=== PATIENT | male | born 1975 | race Caucasian/White ===

== ENCOUNTER 2018-04-12 17:27 | Emergency (ER) | payer OTHER ==
[~2018-04-12] VITALS: Ht 177.8 cm; Wt 79.4 kg
[2018-04-12] MEDS ORDERED: LORAZEPAM 1 MG TABLET ONE (18:28)
[2018-04-12] MEDS ORDERED: LORAZEPAM 1 MG TABLET PO ONE (18:30)
--- NOTE | 2018-04-12 18:34 | NUR ---
PT FEELING ANXIOUS, SOB AND NUMBNESS TO FINGERS & LIPS AFTER WORKING OUT. PT STS HE TOOK COFFEE & PRE WORKOUT SUPPLEMENT BEFORE WORKING OUT. PT DENIES DIZZINESS, N/V @ THIS TIME. PT SEEN & EVAL'D BY RODRÍGUEZ NP & WILL CONT TO MONITOR.
--- NOTE | 2018-04-12 18:41 | NUR ---
MEDICATED FOR ANXIETY, PT ELSIE WELL.
[2018-04-12 19:05] LABS: BASOPHILS # (AUTO) 0.1 /CMM (0.0-0.2); EOSINOPHILS % (AUTO) 3.2 % (0.0-6.0); HEMATOCRIT 44 % (39-51); HEMOGLOBIN 15.2 g/dL (13.5-17.5); LYMPHOCYTES # (AUTO) 2.9 /CMM (0.8-4.8); LYMPHOCYTES % (AUTO) 37.6 % (20.0-44.0); MEAN CORPUSCULAR HGB CONC 35 g/dl (31.0-36.0); MEAN CORPUSCULAR VOLUME 85 fL (80-96); MONOCYTES # (AUTO) 0.5 /CMM (0.1-1.30); MONOCYTES % (AUTO) 6.8 % (2.0-12.0); NEUTROPHILS # (AUTO) 4.1 /CMM (1.8-8.9); NEUTROPHILS % (AUTO) 51.4 % (43.0-81.0); PLATELET COUNT (AUTO) 220 /CMM (150-450); RDW COEFFICIENT OF VARIATION 11.6 (11.5-15.0); RED BLOOD CELL COUNT(AUTO) 5.17 MIL/uL (4.5-6.0); WHITE BLOOD COUNT (AUTO) 7.8 K/uL (4.3-11.0)
[2018-04-12 19:12] LABS: CALCIUM, SERUM 9.2 mg/dL (8.5-10.1); CARBON DIOXIDE 26 mmol/L (21-32); CHLORIDE 107 mmol/L (98-107); GLUCOSE 103 mg/dL (74-106); POTASSIUM 4.2 mmol/L (3.5-5.1); SODIUM SERUM 141 mmol/L (136-145); UREA NITROGEN, BLOOD 17 mg/dL (7-18)
--- NOTE | 2018-04-12 19:19 | NUR ---
pt resting comfortably, sitting upright in bed with family at bedside. vss. nad. will continue to monitor.
[2018-04-12 19:21] LABS: TROPONIN I < 0.017 ng/mL (0.00-0.056)
--- NOTE | 2018-04-12 19:45 | NUR ---
Patient discharged to home in stable condition. Written and verbal after care instructions given. Patient verbalizes understanding of instruction. ambulatory with a steady gait noted. pt [id number] no acute distress noted, resp even and unlabored. advice pt not to drive or operate any machinery due to pt was given narcotic medicine. pt verbalize understanding. pt at bedisde to take pt home.
[2018-04-12 19:47] VITALS: BP 127/68
== END 2018-04-12 19:48 | disposition home or self-care (01) ==
LOC: ER 17:37
DX: R07.89 Other chest pain (principal); K22.4 Dyskinesia of esophagus; E78.00 Pure hypercholesterolemia, unspecified
CPT/HCPCS: 36415; 71045; 80048; 84484; 85025; 93005; 99285; A4606; Z7610

== ENCOUNTER 2018-10-06 21:48 | Emergency (ER) | payer OTHER ==
[~2018-10-06] VITALS: Ht 182.9 cm; Wt 86.2 kg
[2018-10-06 22:01] VITALS: BP 109/73
== END 2018-10-06 22:29 | disposition home or self-care (01) ==
LOC: ER 21:53
DX: S09.22XA Traumatic rupture of left ear drum, initial encounter (principal); H74.8X2 Other specified disorders of left middle ear and mastoid; E78.00 Pure hypercholesterolemia, unspecified; X58.XXXA Exposure to other specified factors, initial encounter; Y93.89 Activity, other specified; Y92.89 Other specified places as the place of occurrence of the external cause; Y99.8 Other external cause status